=== PATIENT | male | born 1950 | race Hispanic/Latino ===

== ENCOUNTER 2025-03-10 13:02 | Emergency (ER) | payer OTHER ==
[~2025-03-10] VITALS: Ht 177.8 cm; Wt 106.1 kg
--- NOTE | 2025-03-10 13:08 | NUR ---
CODE STROKE INTIATED PER MD SWEET
--- NOTE | 2025-03-10 13:10 | NUR ---
PT JUST NOW PLACED IN ED 8
--- NOTE | 2025-03-10 13:13 | NUR ---
PT TAKEN TO CT VIA STRETCHER BY LORETTA HAMMER. BEDSIDE GLUCOSE 180MG/DL
--- NOTE | 2025-03-10 13:16 | NUR ---
PT WAS ABLE TO STAND W/OUT ANY ISSUES AND STEP AND SIT ONTO THE STRETCHER
--- NOTE | 2025-03-10 13:20 | NUR ---
PT JUST RETURNED FROM CT SCAN
--- NOTE | 2025-03-10 13:27 | NUR ---
PT BEING MOVED TO ED BED 15
--- NOTE | 2025-03-10 13:40 | HMCIMG ---
CT HEAD/BRAIN W/O CONTRAST INDICATION: STROKE/TIA TECHNIQUE: CT HEAD/BRAIN W/O CONTRAST. CT was performed with one or more of the following dose reduction techniques: Automated exposure control, adjustment of the mA and/or kV according to the patient's size, or use of the iterative reconstruction technique. Comparison: None FINDINGS: Cerebral atrophy seen. Nonspecific periventricular and subcortical white matters changes are noted likely representing small vessel ischemic changes. No midline shift or herniation. No extra axial collection. No acute intracranial bleed. The visualized paranasal sinuses and mastoid air cells are normally aerated. IMPRESSION: Diffuse atrophy. No acute intracranial bleed is seen. Nonspecific white matter changes
[2025-03-10 13:52] LABS: BASOPHILS # (AUTO) 0.03 K/uL (0.00-0.20); BASOPHILS % (AUTO) 0.7 % (0.0-5.0); EOSINOPHILS # (AUTO) 0.14 K/uL (0.00-0.70); EOSINOPHILS % (AUTO) 3.2 % (0.0-8.0); HEMATOCRIT 40.8 % (42-54); IMMATURE GRANULOCYTE ABSOLUTE 0.01 K/uL (0-1); LYMPHOCYTES # (AUTO) 1.5 K/uL (1.0-4.8); LYMPHOCYTES % (AUTO) 33.5 % (21.0-51.0); MEAN CORPUSCULAR HEMOGLOBIN 33.2 pg (27.0-33.0); MEAN CORPUSCULAR HGB CONC 35.5 g/dL (32.0-36.0); MEAN CORPUSCULAR VOLUME 93.4 fL (79-99); MONOCYTES # (AUTO) 0.5 K/uL (0.1-1.0); MONOCYTES % (AUTO) 10.7 % (3.0-13.0); NEUTROPHILS # (AUTO) 2.3 K/uL (1.8-7.7); NEUTROPHILS % (AUTO) 51.7 % (40.0-77.0); PLATELET COUNT (AUTO) 119 K/uL (130-400); RED BLOOD CELL COUNT(AUTO) 4.37 MIL/uL (4.50-6.20); RED CELL DISTRIBUTION WIDTH 12.8 % (11.0-15.5); WHITE BLOOD COUNT (AUTO) 4.4 K/uL (4.8-10.8)
[2025-03-10 14:00] LABS: CREATININE 0.9 mg/dL (0.5-1.3); POTASSIUM 4.1 mmol/L (3.5-5.1)
[2025-03-10 14:01] LABS: INR 1.06 (0.85-1.15); PROTHROMBIN TIME 11.2 SEC (9.6-11.6)
[2025-03-10] MEDS: predniSONE 20 MG TABLET PO ONE (14:02)
[2025-03-10 14:03] LABS: PARTIAL THROMBOPLASTIN TIME 29.3 SEC (26.3-35.5)
[2025-03-10 14:17] LABS: B-TYPE NATRIURETIC PEPTIDE 31 pg/mL (0-100)
--- NOTE | 2025-03-10 14:29 | HMCIMG ---
INDICATION: SOB TECHNIQUE: CHEST 1VW COMPARISON: None FINDINGS AND IMPRESSION: Prominent bilateral interstitial markings which may represent bronchitis or vascular congestion in the proper clinical setting. Cardiac silhouette is within normal limits. Mild degenerative changes of the spine. The visualized upper abdomen appears unremarkable.
[2025-03-10] MEDS ORDERED: VALA100031 PO (14:59)
[2025-03-10] MEDS ORDERED: PRED5TAB PO (14:59)
[2025-03-10] MEDS ORDERED: ACYCLOVIR 800 MG TABLET PO ONE (15:00)
--- NOTE | 2025-03-10 15:00 | ERN ---
General Chief Complaint: Stroke Symptoms Stated Complaint: LEFT FACIAL DROOP ONSET 4 DAYS AGO Time Seen by MD: 13:09 History of Present Illness Initial Comments Mr Everett is a 74-year-old male who comes in today with a chief complaint of left facial weakness. Patient apparently 4 days ago experienced facial weakness with no other symptoms of headache double vision blurry vision chest pain or arm wea kness. Patient comes in otherwise with no other exposures. A stroke alert was called. Patient's CT showed no acute intracranial abnormality. There is concern for Daniels's palsy Allergies: Coded Allergies: No Known Drug Allergies (Unverified Allergy, Unknown, 03/10/25) Past Medical History Past Medical History: High Cholesterol, Hypertension Past Surgical History: None ROS Dictation Constitutional: Negative for fever,chills, and weight loss Eyes: Negative for injury, pain,redness, and discharge ENT: Negative for injury,pain or swelling Cardiovascular: Negative for chest pain, palpitations, and edema Respiratory: Negative for shortness of breath, cough, and wheezing, Abdomen/GI: Negative for abdominal pain, nausea, vomiting, diarrhea, and constipation Back: Negative for injury and pain : Negative for injury, bleeding and discharge MS/Extremity: Negative for injury and deformity Skin: Negative for rash, and discoloration Neuro: Left facial weakness Psych: Negative for suicide ideation, homicidal ideation, and hallucinations Physical Exam Physical Exam Dictation General: awake, alert, NAD Head/Face: Normocephalic, atraumatic Eyes: PERRL, EOMI, vision at baseline ENT: oral cavity clear, TMs clear, no signs of infection Neck: Trachea midline, supple, no nuchal rigidity Cardiovascular: RRR, normal S1/S2, No MRGs, no JVD Respiratory: CTAB, no respiratory distress, No rales or wheezes Abdomen: Soft, non-tender, non-distended, normal bowel sounds, no guarding or rebound. Skin: Warm, dry, normal turgor, no rash MS/Extremity: Pulses equal, no cyanosis, neurovascular intact, FROM Neuro: Left facial weakness, inability to raise eyebrow on the left side Psych: Normal behavior, mood, and affect normal Results Laboratory and Microbiology Lab and Micro Result Laboratory Tests Test 03/10/25 13:12 03/10/25 13:41 Whole Blood Glucose 180 MG/DL (70-110) H White Blood Count 4.4 K/uL (4.8-10.8) L Red Blood Count 4.37 MIL/uL (4.50-6.20) L Hemoglobin 14.5 g/dL (14.0-18.0) Hematocrit 40.8 % (42-54) L Mean Corpuscular Volume 93.4 fL (79-99) Mean Corpuscular Hemoglobin 33.2 pg (27.0-33.0) H Mean Corpuscular Hemoglobin Concent 35.5 g/dL (32.0-36.0) Red Cell Distribution Width 12.8 % (11.0-15.5) Platelet Count 119 K/uL (130-400) L Mean Platelet Volume 10.3 fL (7.5-10.5) Immature Granulocyte % (Auto) 0.2 % (0-1) Neutrophils (%) (Auto) 51.7 % (40.0-77.0) Lymphocytes (%) (Auto) 33.5 % (21.0-51.0) Monocytes (%) (Auto) 10.7 % (3.0-13.0) Eosinophils (%) (Auto) 3.2 % (0.0-8.0) Basophils (%) (Auto) 0.7 % (0.0-5.0) Neutrophils # (Auto) 2.3 K/uL (1.8-7.7) Lymphocytes # (Auto) 1.5 K/uL (1.0-4.8) Monocytes # (Auto) 0.5 K/uL (0.1-1.0) Eosinophils # (Auto) 0.14 K/uL (0.00-0.70) Basophils # (Auto) 0.03 K/uL (0.00-0.20) Absolute Immature Granulocyte (auto 0.01 K/uL (0-1) Nucleated Red Blood Cells 0.0 % (0.0-0.19) Prothrombin Time 11.2 SEC (9.6-11.6) Prothromb Time International Ratio 1.06 (0.85-1.15) Activated Partial Thromboplast Time 29.3 SEC (26.3-35.5) Sodium Level 138 mmol/L (136-145) Potassium Level 4.1 mmol/L (3.5-5.1) Chloride Level 103 mmol/L (101-111) Carbon Dioxide Level 29 mmol/L (21-32) Blood Urea Nitrogen 12 mg/dL (7-18) Creatinine 0.9 mg/dL (0.5-1.3) Glomerular Filtration Rate Calc 90 mL/min (>90) Random Glucose 146 mg/dL (70-105) H Total Calcium 8.7 mg/dL (8.5-10.1) Total Creatine Kinase 99 U/L (21-232) Troponin I High Sensitivity 4 ng/L (4-75) B-Type Natriuretic Peptide 31 pg/mL (0-100) LDL Cholesterol 39 mg/dL (0-99) MDM Patient has been seen by neurologist confirmed Daniels's palsy. Patient will be given steroids and acyclovir as an outpatient. MDM: Differential diagnosis: Daniels's palsy Rationale: Tests considered and ordered secondary to shared decision making include: Previous outside records reviewed: Old ER visits. Risk of complication and/or morbidity or mortality of patient management: None Medications-Per medication reconciliation Need for hospitalization: Patient does not meet criteria for hospitalization. Need for emergency major/minor surgery: No There are no social concerns with this patient. Prescription drug management Prescriptions will include symptomatic care Patient's prior external medical records from other ER visits were reviewed by me as indicated. Prior testing and results from previous visits were reviewed. Prior tests were taken into account with medical decision making and resource utilization, independent historian/historians were used to obtain complete [facility] history. I independently interpreted the test that were performed, results were reviewed by me and considered findings on radiology if ordered. Medical management and examination interpretation discussions were had by me with other qualified healthcare professionals as indicated for the patient's care. ED Course Orders Procedure Category Date Status Time Vital Signs Per CPOE 03/10/25 Transmitted Routine 13:09 Cardiac Monitoring CPOE 03/10/25 Transmitted 13:09 Bedside Glucose CPOE 03/10/25 Transmitted Fingerstick 13:09 Oxygen By Nc/Pulse Ox CPOE 03/10/25 Transmitted 13:09 Saline Lock Iv CPOE 03/10/25 Transmitted 13:09 Nothing By Mouth DIET 03/10/25 Transmitted Lunch Bedside Swallow Eval ST 03/10/25 Transmitted 13:09 Cbc With Differential LAB 03/10/25 Complete 13:09 Partial LAB 03/10/25 Complete Thromboplastin Time 13:09 Prothrombin Time With LAB 03/10/25 Complete INR 13:09 Ct Head/Brain W/O CT 03/10/25 Resulted Contrast 13:09 12 Lead Ekg Tracing- EKG 03/10/25 Logged Technical 13:09 Neurology Consult CONPHYSVC 03/10/25 Transmitted 13:09 Pulse Ox(Continuous) RT 03/10/25 Transmitted 13:09 Npo W/Aspiration CPOE 03/10/25 Transmitted Precautions 13:09 Complete Nih Stroke CPOE 03/10/25 Transmitted Scale 13:09 Creatine Kinase, Total LAB 03/10/25 Complete 13:09 Troponin I High LAB 03/10/25 Complete Sensitivity 13:09 B-Type Natriuretic LAB 03/10/25 Complete Peptide 13:09 Ldl Direct LAB 03/10/25 Complete 13:09 Urinalysis Profile LAB 03/10/25 Logged 13:09 Chest 1vw RAD 03/10/25 Resulted 13:09 Nihss Every Shift And CPOE 03/10/25 Transmitted PRN 13:09 Neurological Vs Q4hrs MACARENA 03/10/25 Transmitted 13:09 Basic Metabolic Panel LAB 03/10/25 Complete 13:09 Prednisone 20mg Tab PHA 03/10/25 Complete (Deltasone/Orasone 2 14:00 Acyclovir 800 Mg PHA 03/10/25 Logged Tablet (Zovirax 800mg 15:00 Current Medications Medications (Trade) Dose Ordered Sig/José Route PRN Reason Start Time Stop Time Status Last Admin Dose Admin Acyclovir (Zovirax 800mg Tab) 400 mg ONCE ONCE PO 03/10/25 15:00 03/10/25 15:01 UNV Prednisone (deltaSONE/ oraSONE 20MG TAB) 60 mg ONCE ONCE PO 03/10/25 14:00 03/10/25 14:01 DC 03/10/25 14:02 Vital Signs Date Time Temp Pulse Resp B/P (MAP) Pulse Ox O2 Delivery O2 Flow Rate FiO2 03/10/25 13:30 98.1 55 12 139/57 98 Room Air* 0 21 03/10/25 13:12 62 15 158/64 98 Room Air* 0 21 03/10/25 13:04 98.2 59 14 135/65 95 Room Air 0 DX & DISP Disposition: Discharge Departure Impression: Primary Impression: Daniels's palsy Condition: Stable Scripts Valacyclovir HCl (Valacyclovir) 1,000 Mg Tablet 1 TAB PO TID for 7 Days, #21 TAB 0 Refills Prov: JAMMIE ZUÑIGA MD 03/10/25 Prednisone (Prednisone) 5 Mg Tablet 60 MG PO DAILY for 5 Days, #5 TAB Prov: JAMMIE ZUÑIGA MD 03/10/25 Additional Instructions: Please take your medications as prescribed. Please follow up with your primary care physician for follow up of your Daniels's palsy. If you have worsening neurologic changes please come back to emergency department immediately Referrals: SELF,REFERRAL (PCP) JAMMIE ZUÑIGA MD March 10, 2025 15:00
--- NOTE | 2025-03-10 15:25 | CONS ---
CONSULTATION NOTE Date of Service: March 10, 2025 Reason for Consultation: Facial weakness Requesting Physician: Dr Griffin HISTORY OF PRESENT ILLNESS: Mr. Jorgito Balderrama, a 74-year-old right-handed male with a history of hypertension and dyslipidemia, presents with left-sided facial weakness that began last Wednesday. The patient reports that he first noticed the facial weakness when he woke up last Wednesday morning. He states that the left side of his face "fell down" and has progressively worsened over time. Associated symptoms include left ear pain, decreased hearing in the left ear, and altered taste sensation. The patient also mentions difficulty with eating and drinking, noting that food and liquids tend to fall from the left side of his mouth. Mr. Balderrama denies any recent stressors but admits to poor sleep quality. He has not experienced any previous strokes or cerebral infarctions. The patient does not have diabetes or obesity. Social History - Sleep: Patient reports not sleeping well - Stress: Patient has been experiencing stress recently REVIEW OF SYSTEMS CONSTITUTIONAL: Denies fever, chills, or fatigue. HEAD/FACE: No signs of trauma. EENT: Positive for left-sided facial weakness, decreased hearing in left ear. Negative for eye pain. RESPIRATORY: Denies shortness of breath, cough, wheezing CARDIOVASCULAR: Denies chest pain, palpitation, syncope GASTROINTESTINAL/ABDOMINAL: Denies abdominal pain, constipation, diarrhea, nausea or vomiting GENITOURINARY: Denies dysuria or hematuria. MUSCULOSKELETAL: Denies joint pain, tenderness, or trauma. INTEGUMENTARY: Denies rash or itchiness NEUROLOGICAL/PSYCH: Positive for left-sided facial paralysis. PAST MEDICAL HISTORY: - Hypertension - Dyslipidemia - Obesity PAST SURGICAL HISTORY: non contributory PAST SOCIAL HISTORY: no tobacco, etoh and rec drugs FAMILY HISTORY: no family history of stroke Coded Allergies: No Known Drug Allergies (Unverified Allergy, Unknown, 03/10/25) PHYSICAL EXAM Mental status: The patient is alert, attentive, and oriented. Speech is clear and fluent with good repetition, comprehension, and naming. Pt recalls 3/3 objects at 5 minutes. Cranial nerves: CN II: Visual norris are full to confrontation. CN III, IV, : At primary gaze, there is no eye deviation. CN V: Facial sensation is intact to pinprick in all 3 divisions bilaterally. Corneal responses are intact. CN VII: Left facial weakness including forehead CN VIII: Hearing is normal to rubbing fingers CN IX, X: Palate elevates symmetrically. Phonation is normal. CN XI: Head turning and shoulder shrug are intact CN XII: Tongue is midline with normal movements and no atrophy. Motor: There is no pronator drift of out-stretched arms. Muscle bulk and tone are normal. Strength is full bilaterally. Reflexes: Reflexes are 2+ and symmetric at the biceps, triceps, knees, and ankles. Plantar responses are flexor. Sensory: Light touch, pinprick, position sense, and vibration sense are intact in fingers and toes. Coordination: Rapid alternating movements and fine finger movements are intact. There is no dysmetria on sldoya-[id number]-hqaa and nuld-fucn-dror. There are no abnormal or extraneous movements. Romberg is absent. Gait/Stance: Not evaluated Vital Sign (Last 24 Hours) 03/10/25 13:30 Temp 98.1 Pulse 55 Resp 12 B/P (MAP) 139/57 Pulse Ox 98 O2 Delivery Room Air* O2 Flow Rate 0 FiO2 21 LABS: Laboratory: Test 03/10/25 13:41 03/10/25 13:12 Range/Units White Blood Count 4.4 L 4.8-10.8 K/uL Red Blood Count 4.37 L 4.50-6.20 MIL/uL Hemoglobin 14.5 14.0-18.0 g/dL Hematocrit 40.8 L 42-54 % Mean Corpuscular Volume 93.4 79-99 fL Mean Corpuscular Hemoglobin 33.2 H 27.0-33.0 pg Mean Corpuscular Hemoglobin Concent 35.5 32.0-36.0 g/dL Red Cell Distribution Width 12.8 11.0-15.5 % Platelet Count 119 L 130-400 K/uL Mean Platelet Volume 10.3 7.5-10.5 fL Immature Granulocyte % (Auto) 0.2 0-1 % Neutrophils (%) (Auto) 51.7 40.0-77.0 % Lymphocytes (%) (Auto) 33.5 21.0-51.0 % Monocytes (%) (Auto) 10.7 3.0-13.0 % Eosinophils (%) (Auto) 3.2 0.0-8.0 % Basophils (%) (Auto) 0.7 0.0-5.0 % Neutrophils # (Auto) 2.3 1.8-7.7 K/uL Lymphocytes # (Auto) 1.5 1.0-4.8 K/uL Monocytes # (Auto) 0.5 0.1-1.0 K/uL Eosinophils # (Auto) 0.14 0.00-0.70 K/uL Basophils # (Auto) 0.03 0.00-0.20 K/uL Absolute Immature Granulocyte (auto 0.01 0-1 K/uL Nucleated Red Blood Cells 0.0 0.0-0.19 % Prothrombin Time 11.2 9.6-11.6 SEC Prothromb Time International Ratio 1.06 0.85-1.15 Activated Partial Thromboplast Time 29.3 26.3-35.5 SEC Sodium Level 138 136-145 mmol/L Potassium Level 4.1 3.5-5.1 mmol/L Chloride Level 103 101-111 mmol/L Carbon Dioxide Level 29 21-32 mmol/L Blood Urea Nitrogen 12 7-18 mg/dL Creatinine 0.9 0.5-1.3 mg/dL Glomerular Filtration Rate Calc 90 >90 mL/min Random Glucose 146 H 70-105 mg/dL Total Calcium 8.7 8.5-10.1 mg/dL Total Creatine Kinase 99 21-232 U/L Troponin I High Sensitivity 4 4-75 ng/L B-Type Natriuretic Peptide 31 0-100 pg/mL LDL Cholesterol 39 0-99 mg/dL Whole Blood Glucose 180 H 70-110 MG/DL DIAGNOSTICS / RADIOLOGY: CT scan of the head without contrast: Normal ASSESSMENT / PLAN: Mr. Jorgito Everett, a 74-year-old right-handed male with a history of hypertension and dyslipidemia, presents with left-sided facial weakness that began approxim ately last Wednesday. Daniels's Palsy Assessment: Patient presents with left-sided facial weakness that began approximately last Wednesday. Symptoms include difficulty closing the left eye, drooping of the left side of the face, and potential changes in taste sensation. The patient also reports possible left ear pain and decreased hearing, though these may be coincidental. Physical examination reveals left-sided facial weakness consistent with Daniels's Palsy. The etiology is likely due to r eactivation of the varicella-zoster virus (herpes zoster) affecting the facial nerve. Contributing factors may include recent stress or poor sleep, as reported by the patient. Plan: - Prescribe Valacyclovir 1000 mg PO TID for 10 days - Continue Prednisone 60 mg p.o. daily for 10 days - Recommend speech therapy - Advise patient on expected recovery timeline of 3-6 months - Suggest facial massages, focusing on the left side - Recommend cold compresses to reduce inflammation - Follow up as needed Hypertension Assessment: Patient has a known history of hypertension. No specific details about current management or control were discussed during this encounter. Plan: - Continue current management Dyslipidemia Assessment: Patient has a history of dyslipidemia, described as "a little" during the encounter. No specific details about current management or control were discussed. Plan: - Continue current management Thank you for your consultation. I will sign off ALEXANDER FUENTES MD March 10, 2025 15:25
--- NOTE | 2025-03-10 15:30 | EKG ---
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
[2025-03-10] MEDS: ACYCLOVIR 200 MG CAPSULE PO ONE (15:51)
[2025-03-10 16:01] VITALS: BP 142/67; PULSE 70; RESP 16; TEMP 98; O2SAT 98
== END 2025-03-10 16:08 | disposition home or self-care (01) ==
LOC: EDH 13:02
DX: G51.0 Bell's palsy (principal); E78.00 Pure hypercholesterolemia, unspecified; I10 Essential (primary) hypertension; E66.9 Obesity, unspecified; Z79.624 Long term (current) use of inhibitors of nucleotide synthesis; Z68.33 Body mass index [BMI] 33.0-33.9, adult
CPT/HCPCS: 36415; 70450; 71045; 80048; 82550; 82948; 83721; 83880; 84484; 85025; 85610; 85730; 93005; 99285